=== PATIENT | male | born 1955 | race Caucasian/White ===

== ENCOUNTER → 2024-12-23 10:24 | Outpatient (REF) | payer MEDICARE, SELFPAY | LOC: DHSLP 10:24 | PROVIDERS: ATTENDING PHYSICIAN Internal Medicine Critical Care Medicine; FAMILY PHYSICIAN Internal Medicine Critical Care Medicine | DX: G47.33 Obstructive sleep apnea (adult) (pediatric) (principal) | CPT/HCPCS: 95800 ==

== ENCOUNTER → 2025-05-22 08:59 | Outpatient (REF) | payer MEDICARE, SELFPAY ==
--- NOTE | 2025-05-22 10:06 | CARDSERVLU ---
Echocardiogram with Lumason completed after protocol screening completed. Allergies verified.
Patent IV site: _left hand____
IV site flushed with 0.9% NaCl pre and post administration.
Diluted bolus method utilized to enhance visualization of ventricular drummond.
Total volume given: __1.5__ mL
Patient tolerated all procedures well without complications.
== END ==
LOC: RCS 08:59
PROVIDERS: ATTENDING PHYSICIAN Internal Medicine Cardiovascular Disease; FAMILY PHYSICIAN Family Medicine
DX: I77.810 Thoracic aortic ectasia (principal)
CPT/HCPCS: 93306; Q9950